=== PATIENT | female | born 1985 | race Asian ===

== ENCOUNTER 2017-10-24 10:57 | Outpatient (CLI) | payer BC | END 2017-10-24 22:30 | disposition home or self-care (01) | LOC: US 10:57 | DX: N94.6 Dysmenorrhea, unspecified (principal) ==

== ENCOUNTER 2017-12-11 15:57 | Outpatient (CLI) | payer BC | END 2017-12-11 19:52 | disposition home or self-care (01) | LOC: RAD 15:57 | DX: M54.5 Low back pain (principal) ==

== ENCOUNTER 2019-02-22 09:02 | Outpatient (CLI) | payer BC | END 2019-02-22 21:00 | disposition home or self-care (01) | LOC: CT 09:02 | DX: R19.09 Other intra-abdominal and pelvic swelling, mass and lump (principal) | CPT/HCPCS: 36415; 82565; 84520; Q9963 ==

== ENCOUNTER 2020-02-12 10:25 | Outpatient (CLI) | payer OTHER | END 2020-02-12 20:30 | disposition home or self-care (01) | LOC: US 10:25 | DX: R10.13 Epigastric pain (principal) ==

== ENCOUNTER 2022-08-31 07:09 | Emergency (ER) | payer OTHER ==
[~2022-08-31] VITALS: Ht 167.6 cm; Wt 141.5 kg
[2022-08-31 08:25] VITALS: BP 148/67; TEMP 98.4
== END 2022-08-31 08:30 | disposition still patient (30) ==
LOC: ED 07:09
DX: M54.41 Lumbago with sciatica, right side (principal)
CPT/HCPCS: 96372; 99283; J1885

== ENCOUNTER 2022-09-07 15:16 | Outpatient (CLI) | payer OTHER | END 2022-09-07 20:00 | disposition home or self-care (01) | LOC: RAD 15:16 | PROVIDERS: ATTEND Nurse Practitioner Family | DX: M54.31 Sciatica, right side (principal) ==